=== PATIENT | male | born 1960 | race Caucasian/White ===

== ENCOUNTER 2017-07-31 13:30 | Outpatient (CLI) | payer OTHER ==
--- NOTE | 2017-07-31 13:59 | RAD ---
PA AND LATERAL: History: 56-year-old male with history of dyspnea. Comparison: 02-18-14 FINDINGS: Heart size is within normal limits. The lungs are clear. No pneumonia, edema, or pleural effusion. IMPRESSION: No acute intrathoracic disease. Stable from prior study. POS: OFF
== END 2017-07-31 13:31 | disposition home or self-care (01) ==
LOC: RAD 13:30
PROVIDERS: ATTEND Internal Medicine Critical Care Medicine
DX: R06.00 Dyspnea, unspecified (principal)
CPT/HCPCS: 71046

== ENCOUNTER 2018-07-30 12:26 | Outpatient (CLI) | payer OTHER ==
--- NOTE | 2018-07-30 12:38 | RAD ---
2 views of the chest 07/30/2018 COMPARISON: 07/31/2017 HISTORY: Shortness of breath FINDINGS: No pneumothorax, pleural fluid, focal consolidation, or alveolar edema. Increased linear in terstitial density with pulmonary hyperinflation noted, suggesting COPD in the proper clinical setting, stable. IMPRESSION: Chronic findings as detailed above. No acute findings are seen.
== END 2018-07-30 12:27 | disposition home or self-care (01) ==
LOC: RAD 12:26
PROVIDERS: ATTEND Internal Medicine Critical Care Medicine
DX: R06.00 Dyspnea, unspecified (principal)
CPT/HCPCS: 71046

== ENCOUNTER 2019-05-11 10:53 | Outpatient (CLI) | payer BC ==
--- NOTE | 2019-05-11 11:18 | RAD ---
EXAM: Chest 2 views: HISTORY: Dyspnea COMPARISON: 07/30/2018 FINDINGS: There is a normal-sized cardiomediastinal silhouette. There is no evidence of consolidation, mass, or pleural effusion. Degenerative changes are seen in the spine. IMPRESSION: No evidence of acute cardiopulmonary disease
== END 2019-05-11 10:54 | disposition home or self-care (01) ==
LOC: RAD 10:53
PROVIDERS: ATTEND Internal Medicine Critical Care Medicine
DX: R06.00 Dyspnea, unspecified (principal)
CPT/HCPCS: 71046

== ENCOUNTER 2019-10-13 10:19 | Outpatient (CLI) | payer BC ==
--- NOTE | 2019-10-13 10:37 | RAD ---
XR Chest Pa Lat STANDARD HISTORY: Dyspnea COMPARISON: 05/11/2019 FINDINGS: The heart size is normal. The lungs are well expanded without focal areas of consolidation, pneumothorax or pleural effusions. There is a new 2.8 cm nodule in the left mid/lower lung. There are degenerative changes in the spine IMPRESSION: Left lung nodule. Further evaluation with CT scan is recommended.
== END 2019-10-13 10:20 | disposition home or self-care (01) ==
LOC: BICRAD 10:19
PROVIDERS: ATTEND Internal Medicine Critical Care Medicine
DX: R06.00 Dyspnea, unspecified (principal); R91.1 Solitary pulmonary nodule
CPT/HCPCS: 71046

== ENCOUNTER 2020-02-17 09:04 | Outpatient (CLI) | payer BC ==
--- NOTE | 2020-02-17 10:43 | RAD ---
PA AND LATERAL CHEST: Date: 02/17/2020 HISTORY: Dyspnea. COMPARISON: 11/18/2019. FINDINGS: Linear stranding in the left peripheral lung noted on the prior exam is less pronounced today. No makenna dence of infiltrate or vascular congestion. Heart and mediastinum appear normal. Degenerative spine c hanges again noted. IMPRESSION: No acute process. POS: [facility]
== END 2020-02-17 09:05 | disposition home or self-care (01) ==
LOC: BICRAD 09:04
PROVIDERS: ATTEND Internal Medicine Critical Care Medicine
DX: R06.00 Dyspnea, unspecified (principal)
CPT/HCPCS: 71046

== ENCOUNTER 2020-12-13 09:10 | Outpatient (CLI) | payer BC | END 2020-12-13 09:11 | disposition home or self-care (01) | LOC: BICRAD 09:10 | PROVIDERS: ATTEND Internal Medicine Critical Care Medicine | DX: R06.00 Dyspnea, unspecified (principal) | CPT/HCPCS: 71046 ==

== ENCOUNTER 2021-02-14 11:05 | Outpatient (CLI) | payer BC | END 2021-02-14 11:06 | disposition home or self-care (01) | LOC: RAD 11:05 | PROVIDERS: ATTEND Internal Medicine Critical Care Medicine | DX: R06.00 Dyspnea, unspecified (principal) | CPT/HCPCS: 71046 ==

== ENCOUNTER 2022-01-09 09:04 | Outpatient (CLI) | payer BC | END 2022-01-09 09:05 | disposition home or self-care (01) | LOC: RAD 09:04 | PROVIDERS: ATTEND Internal Medicine Critical Care Medicine | DX: R06.00 Dyspnea, unspecified (principal); J43.9 Emphysema, unspecified | CPT/HCPCS: 71046 ==

== ENCOUNTER 2022-04-25 12:19 | Outpatient (CLI) | payer BC | END 2022-04-25 12:20 | disposition home or self-care (01) | LOC: RAD 12:19 | PROVIDERS: ATTEND Internal Medicine Critical Care Medicine | DX: R06.00 Dyspnea, unspecified (principal); J44.9 Chronic obstructive pulmonary disease, unspecified; I27.20 Pulmonary hypertension, unspecified | CPT/HCPCS: 71046 ==

== ENCOUNTER 2022-07-15 08:00 | Outpatient (CLI) | payer BC | END 2022-07-15 08:01 | disposition home or self-care (01) | LOC: BICCT 08:00 | PROVIDERS: ATTEND Internal Medicine Critical Care Medicine | DX: J47.9 Bronchiectasis, uncomplicated (principal) | CPT/HCPCS: 71250 ==

== ENCOUNTER 2022-10-04 08:04 | Emergency (ER) | payer BC ==
[2022-10-04 08:45] LABS: #Basophils 0.1 thou/uL (0.0-0.2); #Eosinphils 0.2 thou/uL (0.0-0.7); #Neutrophils 3.9 thou/uL (1.40-6.50); %Basophils 1.2 % (0.0-1.0); %Eosinophils 3.2 % (0.0-10.0); %Lymphocytes 25.4 % (21.0-51.0); %Monocytes 13.9 % (0.0-10.0); %Neutrophils 55.9 % (42.0-75.0); Hemoglobin 15.5 g/dL (14.0-18.0); Mean Corpuscular HGB CONC 33.3 g/dL (32.0-36.0); Mean Corpuscular Hemoglobin 33.5 pg (27.0-31.0); Mean Corpuscular Volume 100.4 fl (78.0-98.0); Mean Platelet Volume 9.1 fL (7.4-10.4); Platelet Count 252 10x3/uL (130-400); RBC Distribution Width 12.5 % (11.5-14.5); Red Blood Cell (RBC) Count 4.63 mill/uL (4.70-6.10); White Blood Cell (WBC) Count 6.9 10x3/uL (4.8-10.8)
[2022-10-04 09:07] LABS: ALT (SGPT) 29 U/L (8-55); AST (SGOT) 28 U/L (5-34); Albumin 4.1 g/dL (3.4-4.8); Alkaline Phosphatase 93 U/L (40-110); Anion Gap 11 mmol/L (10-20); BUN (Urea Nitrogen) 9 mg/dL (8.4-25.7); Bilirubin, Total 0.9 mg/dL (0.2-1.2); Calc. Creatinine Clearance 0 mL/min (70-130); Calcium 9.1 mg/dL (7.8-10.44); Carbon Dioxide 29 mmol/L (23-31); Chloride 100 mmol/L (98-107); Estimated GFR 99; Globulin 2.7 g/dL (2.4-3.5); Glucose 106 mg/dL (80-115); Lipase 25 U/L (8-78); Potassium 3.7 mmol/L (3.5-5.1); Protein, Total 6.8 g/dL (5.8-8.1); Sodium 136 mmol/L (136-145)
[2022-10-04 09:18] LABS: Bacteria/HPF None Seen HPF (None Seen); Bilirubin Negative (Negative); Blood, Urine Negative (Negative); CAUTI Indications for Culture Pelvic or flank pain; Clarity Clear (Clear); Glucose, Urine (Dipstick) Normal (Negative); Ketone, Urine Negative (Negative); Leukocyte Negative Leu/uL (Negative); Nitrite Negative (Negative); Protein, Urine (Dipstick) Negative (Neg-Trace); RBC/HPF None Seen HPF (0-3); Specific Gravity, Urine 1.006 (1.002-1.036); Squamous Epithelial None Seen HPF (0-3); Urobilinogen Normal mg/dL (Less than 2); WBC/HPF 0-3 HPF (0-3); pH, Urine 7.5 (5.0-9.0)
[2022-10-04 09:21] LABS: Urine Culture Reflex No No
[2022-10-04] MEDS ORDERED: Iopamidol-370 76% 500 ML MDV (1 ML CHARGE) ONE (09:26)
== END 2022-10-04 10:10 | disposition home or self-care (01) ==
LOC: ERS 08:04
DX: R10.9 Unspecified abdominal pain (principal); I10 Essential (primary) hypertension; J44.9 Chronic obstructive pulmonary disease, unspecified; Z87.891 Personal history of nicotine dependence
CPT/HCPCS: 36415; 74177; 80053; 81001; 83690; 85025; 86850; 86900; 86901; 94760; Q9967

== ENCOUNTER 2023-06-08 09:10 | Inpatient (IN) | payer BC ==
[2023-06-08 09:35] LABS: #Monocytes 0.9 thou/uL (0.11-0.59); #Neutrophils 7.1 thou/uL (1.40-6.50); %Basophils 0.1 % (0.0-1.0); %Lymphocytes 12.5 % (21.0-51.0); %Neutrophils 77.1 % (42.0-75.0); Hematocrit 45.3 % (42.0-52.0); Hemoglobin 15.2 g/dL (14.0-18.0); Mean Corpuscular HGB CONC 33.6 g/dL (32.0-36.0); Mean Corpuscular Hemoglobin 32.6 pg (27.0-31.0); Mean Corpuscular Volume 97.2 fl (78.0-98.0); Mean Platelet Volume 9.3 fL (7.4-10.4); Platelet Count 178 10x3/uL (130-400); RBC Distribution Width 13.2 % (11.5-14.5); Red Blood Cell (RBC) Count 4.66 mill/uL (4.70-6.10); White Blood Cell (WBC) Count 9.2 10x3/uL (4.8-10.8)
[2023-06-08] MEDS ORDERED: Doxycycline 100 MG CAP ONE (09:46)
[2023-06-08] MEDS ORDERED: Cefepime 2 GM VIAL ONE ×2 (09:46→11:14)
[2023-06-08] MEDS ORDERED: Aspirin Chewable 81 MG TAB ONE (09:46)
[2023-06-08] MEDS ORDERED: methylPREDNISolone Sod Succ/PF 125 MG/2 ML VIAL ONE (09:46)
[2023-06-08] MEDS ORDERED: Sodium Chloride 0.9% 0 ML ONE (09:48)
[2023-06-08 10:00] LABS: ALT (SGPT) 43 U/L (8-55); AST (SGOT) 53 U/L (5-34); Albumin 3.7 g/dL (3.4-4.8); Alkaline Phosphatase 97 U/L (40-110); Anion Gap 11 mmol/L (10-20); BUN (Urea Nitrogen) 10 mg/dL (8.4-25.7); Bilirubin, Total 0.4 mg/dL (0.2-1.2); Calc. Creatinine Clearance 0 mL/min (70-130); Calcium 8.2 mg/dL (7.8-10.44); Carbon Dioxide 27 mmol/L (23-31); Chloride 105 mmol/L (98-107); Estimated GFR 102; Globulin 2.4 g/dL (2.4-3.5); Glucose 113 mg/dL (80-115); Lipase 23 U/L (8-78); Magnesium 1.8 mg/dL (1.6-2.6); Potassium 4.1 mmol/L (3.5-5.1); Protein, Total 6.1 g/dL (5.8-8.1); Sodium 139 mmol/L (136-145)
[2023-06-08 10:03] LABS: Troponin I 0.091 ng/mL (< 0.028)
[2023-06-08] MEDS ORDERED: Magnesium 2 GM/50 ML BAG (IN WATER) ONE (10:06)
[2023-06-08] MEDS ORDERED: Ondansetron PF 4 MG/2 ML Vial IVP PRN (10:20)
[2023-06-08] MEDS ORDERED: Senokot S 8.6-50 MG TAB PO PRN (10:20)
[2023-06-08] MEDS ORDERED: Loperamide HCl 2 MG CAP PO PRN (10:20)
[2023-06-08] MEDS ORDERED: Ipratropium/Albuterol 3 ML NEB NEB PRN ×2 (10:20→18:05)
[2023-06-08] MEDS ORDERED: Bisacodyl 10 MG SUPP PR PRN (10:20)
[2023-06-08] MEDS ORDERED: Acetaminophen 325 MG TAB PO PRN (10:20)
[2023-06-08 11:13] LABS: Influenza A by NAA DETECTED (NotDetected); Influenza B by NAA Not Detected (NotDetected); SARS-CoV-2 NAA Rapid Test DETECTED (NotDetected)
[2023-06-08] MEDS ORDERED: Sodium Chloride 0.9% 100 ML ONE (11:15)
[2023-06-08] MEDS: Vancomycin (BATCH) 1.75 GM in Premix 1 BAG IVPB SCH (12:40)
[2023-06-08 12:43] VITALS: BMI 22.6
[2023-06-08 12:54] LABS: Actual Bicarbonate (HCO3v) 25.1 mEq/L (22-28); Analyzer IN Cardio ER; Base Excess -0.3 mEq/L (-2.0 to +3.0); Calcium, Ionized (venous) 1.07 mmol/L (1.16-1.32); Chloride (VBG) 104 mmol/L (98-106); Hematocrit-VBG 47 % (42.0-52.0); Hemoglobin (Hb) 15.9 g/dL (13.1-17.2); Potassium (VBG) 3.82 mmol/L (3.70-5.30); Sodium 138 mmol/L (133-146); pH (venous) 7.377 (7.32-7.43)
[2023-06-08 13:24] LABS: Critical Call Chem Troponin I NUR.KR7 @1323; Troponin I 1.744 ng/mL (< 0.028)
[2023-06-08] MEDS: Lactated Ringer's 1,000 ML IV SCH (13:38)
[2023-06-08] MEDS: Ipratropium/Albuterol 3 ML NEB NEB SCH ×2 (13:50→20:04)
[2023-06-08] MEDS ORDERED: Enoxaparin 80 MG (0.8 mL) SYRINGE ONE (14:03)
[2023-06-08] MEDS ORDERED: Oseltamivir 75 MG CAP ONE (14:17)
[2023-06-08] MEDS: Oseltamivir 75 MG CAP PO SCH ×2 (14:20→21:00)
[2023-06-08 16:09] LABS: PTT 36.4 sec (22.9-36.1); Prothrombin Time 13.5 sec (12.0-14.7)
[2023-06-08] MEDS ORDERED: Albuterol 200 PUFF (6.7GM INHALER) INH PRN (16:30)
[2023-06-08 17:13] LABS: Legionella Urinary Ag Negative (Negative); Strep pneumo Urine Ag NEGATIVE (NEGATIVE)
[2023-06-08] MEDS: Cefepime 2 GM in Sodium Chloride 0.9% 100 ML IVPB SCH (17:59)
[2023-06-08] MEDS: methylPREDNISolone Sod Succ 40 MG VIAL IVP SCH (17:59)
[2023-06-08 18:23] LABS: Critical Call Chem Troponin I NUR.KD5 @1822; Troponin I 1.985 ng/mL (< 0.028)
[2023-06-08] MEDS ORDERED: Albuterol 200 PUFF (6.7GM INHALER) INH SCH (19:00)
[2023-06-08] MEDS: Famotidine/PF 20 mg/2ml Vial SLOW IVP SCH (21:00)
[2023-06-08] MEDS: Azithromycin 500 MG in Sodium Chloride 0.9% 250 ML 250 ML IVPB SCH (21:00)
[2023-06-09] MEDS: Vancomycin (BATCH) 1.5 GM in Premix 1 BAG IVPB SCH (00:19)
[2023-06-09] MEDS: Enoxaparin 80 MG (0.8 mL) SYRINGE SC SCH ×2 (01:51→13:10)
[2023-06-09 05:51] LABS: #Monocytes 0.5 thou/uL (0.11-0.59); %Basophils 0.2 % (0.0-1.0); %Lymphocytes 7.8 % (21.0-51.0); %Monocytes 7.8 % (0.0-10.0); %Neutrophils 83.9 % (42.0-75.0); Hematocrit 48.5 % (42.0-52.0); Hemoglobin 15.6 g/dL (14.0-18.0); Mean Corpuscular HGB CONC 32.2 g/dL (32.0-36.0); Mean Corpuscular Hemoglobin 31.9 pg (27.0-31.0); Mean Corpuscular Volume 99.2 fl (78.0-98.0); Mean Platelet Volume 9.7 fL (7.4-10.4); Platelet Count 178 10x3/uL (130-400); RBC Distribution Width 13.4 % (11.5-14.5); Red Blood Cell (RBC) Count 4.89 mill/uL (4.70-6.10)
[2023-06-09 06:05] LABS: Hemoglobin A1c 5.5 % (4.0-6.0)
[2023-06-09 06:18] LABS: ALT (SGPT) 48 U/L (8-55); AST (SGOT) 68 U/L (5-34); Albumin 3.6 g/dL (3.4-4.8); Alkaline Phosphatase 85 U/L (40-110); Anion Gap 14 mmol/L (10-20); BUN (Urea Nitrogen) 8 mg/dL (8.4-25.7); Bilirubin, Direct 0.2 mg/dL (0.1-0.3); Bilirubin, Total 0.4 mg/dL (0.2-1.2); Calc. Creatinine Clearance 126 mL/min (70-130); Calcium 8.2 mg/dL (7.8-10.44); Carbon Dioxide 23 mmol/L (23-31); Cardiac Risk 2.5 (Less than 4.5); Chloride 105 mmol/L (98-107); Cholesterol 167 mg/dl (< 200 Desired); Estimated GFR 107; Glucose 132 mg/dL (80-115); HDL Cholesterol 67 mg/dL (>60 Neg Risk); LDL Cholesterol, Calculated 89 mg/dL; Potassium 4.2 mmol/L (3.5-5.1); Protein, Total 6.3 g/dL (5.8-8.1); Sodium 138 mmol/L (136-145); Triglycerides 57 mg/dL (Less than 150)
[2023-06-09] MEDS ORDERED: Albuterol 200 PUFF (6.7GM INHALER) INH PRN (07:01)
[2023-06-09] MEDS ORDERED: Enoxaparin 40 MG (0.4 mL) SYRINGE SC SCH (09:00)
[2023-06-09] MEDS ORDERED: Ipratropium/Albuterol 3 ML NEB NEB PRN (14:48)
[2023-06-09] MEDS: Albuterol 200 PUFF (6.7GM INHALER) INH SCH (17:47)
[2023-06-09] MEDS: Ipratropium/Albuterol 3 ML NEB NEB SCH (18:32)
[2023-06-10 04:26] LABS: #Monocytes 0.7 thou/uL (0.11-0.59); #Neutrophils 6.4 thou/uL (1.40-6.50); %Basophils 0.1 % (0.0-1.0); %Lymphocytes 12.1 % (21.0-51.0); %Monocytes 8.6 % (0.0-10.0); %Neutrophils 78.8 % (42.0-75.0); Hematocrit 47.3 % (42.0-52.0); Hemoglobin 15.5 g/dL (14.0-18.0); Mean Corpuscular HGB CONC 32.8 g/dL (32.0-36.0); Mean Corpuscular Hemoglobin 32.4 pg (27.0-31.0); Mean Corpuscular Volume 98.7 fl (78.0-98.0); Mean Platelet Volume 9.7 fL (7.4-10.4); Platelet Count 189 10x3/uL (130-400); RBC Distribution Width 13.1 % (11.5-14.5); Red Blood Cell (RBC) Count 4.79 mill/uL (4.70-6.10); White Blood Cell (WBC) Count 8.1 10x3/uL (4.8-10.8)
[2023-06-10 04:52] LABS: Vancomycin, Random 29.7 ug/mL (See Comment)
[2023-06-10 04:53] LABS: Anion Gap 11 mmol/L (10-20); BUN (Urea Nitrogen) 10 mg/dL (8.4-25.7); Calc. Creatinine Clearance 126 mL/min (70-130); Carbon Dioxide 26 mmol/L (23-31); Chloride 102 mmol/L (98-107); Estimated GFR 107; Glucose 127 mg/dL (80-115); Magnesium 2.2 mg/dL (1.6-2.6); Potassium 4.2 mmol/L (3.5-5.1); Sodium 135 mmol/L (136-145)
[2023-06-10 07:24] LABS: Critical Call Chem Troponin I NUR.KD5@0724; Troponin I 2.194 ng/mL (< 0.028)
[2023-06-10] MEDS: methylPREDNISolone Sod Succ 40 MG VIAL IVP SCH (09:17)
[2023-06-10] MEDS: Enoxaparin 80 MG (0.8 mL) SYRINGE SC SCH (13:48)
[2023-06-11 04:48] LABS: #Monocytes 0.5 thou/uL (0.11-0.59); #Neutrophils 4.6 thou/uL (1.40-6.50); %Basophils 0.2 % (0.0-1.0); %Lymphocytes 9.4 % (21.0-51.0); %Monocytes 8.9 % (0.0-10.0); Hematocrit 44.3 % (42.0-52.0); Hemoglobin 14.5 g/dL (14.0-18.0); Mean Corpuscular HGB CONC 32.7 g/dL (32.0-36.0); Mean Corpuscular Hemoglobin 31.7 pg (27.0-31.0); Mean Corpuscular Volume 96.7 fl (78.0-98.0); Mean Platelet Volume 10.3 fL (7.4-10.4); Platelet Count 173 10x3/uL (130-400); Red Blood Cell (RBC) Count 4.58 mill/uL (4.70-6.10); White Blood Cell (WBC) Count 5.6 10x3/uL (4.8-10.8)
[2023-06-11 05:14] LABS: Anion Gap 12 mmol/L (10-20); BUN (Urea Nitrogen) 12 mg/dL (8.4-25.7); Calc. Creatinine Clearance 134 mL/min (70-130); Calcium 8.3 mg/dL (7.8-10.44); Carbon Dioxide 27 mmol/L (23-31); Chloride 103 mmol/L (98-107); Estimated GFR 107; Glucose 151 mg/dL (80-115); Magnesium 2.1 mg/dL (1.6-2.6); Potassium 3.8 mmol/L (3.5-5.1); Sodium 138 mmol/L (136-145)
[2023-06-11 05:17] LABS: Critical Call Chem Troponin I RESULT DECREASING; Troponin I 1.715 ng/mL (< 0.028)
[2023-06-11] MEDS ORDERED: ALPHA IVPB SCH (17:30)
[2023-06-11] MEDS ORDERED: PROTEINASE INHIBITOR IVPB SCH (17:30)
[2023-06-11] MEDS: Mometasone 100 MCG HFA INHALER (RT USE) INH SCH (19:44)
[2023-06-11] MEDS: Fluticasone Propionate Nasal Spray 16 gm Bottle NASAL SCH (21:33)
[2023-06-11] MEDS: methylPREDNISolone Sod Succ 40 MG VIAL IVP SCH (21:34)
[2023-06-11 22:12] LABS: Mycoplasma pneumoniae IgG AB 1223 U/mL (0-99); Mycoplasma pneumoniae IgM AB Less than 770 U/mL (0-769)
[2023-06-12 04:16] LABS: #Monocytes 0.5 thou/uL (0.11-0.59); %Basophils 0.2 % (0.0-1.0); %Lymphocytes 7.2 % (21.0-51.0); %Neutrophils 84.3 % (42.0-75.0); Mean Corpuscular HGB CONC 33.3 g/dL (32.0-36.0); Mean Corpuscular Hemoglobin 32.1 pg (27.0-31.0); Mean Corpuscular Volume 96.3 fl (78.0-98.0); Mean Platelet Volume 9.9 fL (7.4-10.4); Platelet Count 160 10x3/uL (130-400); RBC Distribution Width 12.7 % (11.5-14.5); Red Blood Cell (RBC) Count 4.36 mill/uL (4.70-6.10)
[2023-06-12 04:44] LABS: Anion Gap 11 mmol/L (10-20); BUN (Urea Nitrogen) 11 mg/dL (8.4-25.7); Calc. Creatinine Clearance 122 mL/min (70-130); Calcium 8.1 mg/dL (7.8-10.44); Carbon Dioxide 28 mmol/L (23-31); Chloride 102 mmol/L (98-107); Estimated GFR 105; Glucose 149 mg/dL (80-115); Magnesium 2.2 mg/dL (1.6-2.6); Potassium 3.9 mmol/L (3.5-5.1); Sodium 137 mmol/L (136-145)
[2023-06-12 05:04] LABS: Critical Call Chem Troponin I RESULT DECREASING; Troponin I 0.765 ng/mL (< 0.028)
[2023-06-12] MEDS: Ascorbic Acid 500 mg Chewable Tablet PO SCH (09:47)
[2023-06-12] MEDS: Aspirin 81 mg Enteric Coated Tablet PO SCH (09:48)
[2023-06-12] MEDS: Multivitamin W/ Minerals 1 TAB PO SCH (09:48)
[2023-06-12] MEDS: Cyanocobalamin (Vitamin B-12) 1,000 MCG TAB PO SCH (09:48)
[2023-06-12] MEDS: CO Q-10 CAPSULE 100 MG PO SCH (09:48)
[2023-06-12] MEDS: Sodium Chloride 0.9% 100 ML ONE (09:51)
[2023-06-12 12:32] VITALS: BP 165/91; TEMP 98.6
== END 2023-06-12 15:13 | disposition home or self-care (01) | DRG 193 ==
LOC: ERS 09:10 → ERHOLD 10:25 → IMCU/EMU 16:23 → 2SW 06-10 22:19
PROVIDERS: ADMIT Family Medicine; ATTEND Hospitalist
PROC: 5A0945A Assistance with Respiratory Ventilation, 24-96 Consecutive Hours, High Flow/Velocity Cannula (ICD-10-PCS; principal; 2023-06-08)
DX: J10.00 Influenza due to other identified influenza virus with unspecified type of pneumonia (principal); I21.A1 Myocardial infarction type 2; J96.01 Acute respiratory failure with hypoxia; J44.1 Chronic obstructive pulmonary disease with (acute) exacerbation; Z87.891 Personal history of nicotine dependence; Z79.82 Long term (current) use of aspirin; Z79.899 Other long term (current) drug therapy; I48.0 Paroxysmal atrial fibrillation; E88.01 Alpha-1-antitrypsin deficiency
CPT/HCPCS: 36415; 71045; 80048; 80053; 80061; 80076; 80202; 82805; 83036; 83605; 83690; 83735; 83880; 84443; 84484; 85025; 85610; 85730; 86850; 86900; 86901; 87040; 87070; 87081; 87205; 87449; 87899; 93005; 93306; 94640; 94660; 94664; 94760; 96361; 96372; 96374; 96375; J0456; J0692; J1650; J2920; J2930; J3370; J3475; J3490; J7050; J7120; J7620; S0028